=== PATIENT | female | born 2000 | race Caucasian/White ===

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

== ENCOUNTER → 2020-02-13 15:26 | Outpatient (BNVA) | payer BC, SELFPAY | PROVIDERS: Family Provider Family Medicine; PCP Family Medicine; Visit Provider Obstetrics & Gynecology | DX: Z30.017 Encounter for initial prescription of implantable subdermal contraceptive (principal); Z30.9 Encounter for contraceptive management, unspecified | CPT/HCPCS: 81025 ==

== ENCOUNTER 2021-07-15 10:47 | Emergency (ER) | payer BC, SELFPAY ==
[2021-07-15 11:19] VITALS: BP 110/67; PULSE 58; RESP 18; TEMP 36.7; O2SAT 97; BMI 27.4
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
[2021-07-15] MEDS: CELEcoxib 200 mg Capsule 400 MG PO (12:18)
[2021-07-15 12:19] VITALS: RESP 18; TEMP 36.7; O2SAT 97
== END 2021-07-15 12:19 | disposition home or self-care (01) ==
PROVIDERS: Emergency Provider Nurse Practitioner Family; PCP Family Medicine
DX: S99.912A Unspecified injury of left ankle, initial encounter (principal); Y93.52 Activity, horseback riding
CPT/HCPCS: 73630; 99283

== ENCOUNTER → 2022-10-03 14:55 | Outpatient (BNVA) | payer BC, SELFPAY | PROVIDERS: PCP Family Medicine; Visit Provider Obstetrics & Gynecology | DX: N76.0 Acute vaginitis (principal); B96.89 Other specified bacterial agents as the cause of diseases classified elsewhere | CPT/HCPCS: 87491; 87591; 87661 ==

== ENCOUNTER → 2024-08-26 09:51 | Outpatient (BNVA) | payer BC, SELFPAY | PROVIDERS: PCP Family Medicine; Visit Provider Nurse Practitioner Women's Health | DX: N91.2 Amenorrhea, unspecified (principal); N92.6 Irregular menstruation, unspecified | CPT/HCPCS: 81025 ==

== ENCOUNTER → 2024-08-30 12:28 | Outpatient (BNVA) | payer BC, SELFPAY | PROVIDERS: PCP Family Medicine; Visit Provider Nurse Practitioner Women's Health | DX: Z34.90 Encounter for supervision of normal pregnancy, unspecified, unspecified trimester (principal) | CPT/HCPCS: 76801 ==

== ENCOUNTER → 2024-09-22 09:58 | Outpatient (BNVA) | payer BC, SELFPAY | PROVIDERS: PCP Family Medicine; Visit Provider Nurse Practitioner Women's Health | DX: Z34.90 Encounter for supervision of normal pregnancy, unspecified, unspecified trimester (principal); Z34.00 Encounter for supervision of normal first pregnancy, unspecified trimester | CPT/HCPCS: 80307; 84315; 85025; 86592; 86762; 86803; 86850; 86900; 87086; 87340; 87806 ==

== ENCOUNTER → 2024-09-30 10:30 | Outpatient (BNVA) | payer BC, SELFPAY | PROVIDERS: PCP Family Medicine; Visit Provider Obstetrics & Gynecology | DX: Z34.01 Encounter for supervision of normal first pregnancy, first trimester (principal) | CPT/HCPCS: 84315; 87491; 87591; 87624; 87661 ==

== ENCOUNTER → 2024-10-20 14:06 | Outpatient (BNVA) | payer BC, SELFPAY | PROVIDERS: PCP Family Medicine; Visit Provider Nurse Practitioner Women's Health | DX: Z34.01 Encounter for supervision of normal first pregnancy, first trimester (principal) | CPT/HCPCS: 84315 ==

== ENCOUNTER → 2024-12-02 14:55 | Outpatient (BNVA) | payer BC, SELFPAY | PROVIDERS: PCP Family Medicine; Visit Provider Obstetrics & Gynecology | DX: Z34.90 Encounter for supervision of normal pregnancy, unspecified, unspecified trimester (principal) | CPT/HCPCS: 84315 ==

== ENCOUNTER → 2024-12-19 08:00 | Outpatient (BNVA) | payer BC, SELFPAY | PROVIDERS: PCP Family Medicine; Visit Provider Nurse Practitioner Women's Health | DX: O99.891 Other specified diseases and conditions complicating pregnancy (principal); R82.71 Bacteriuria | CPT/HCPCS: 84315; 87086 ==

== ENCOUNTER → 2024-12-27 11:14 | Outpatient (BNVA) | payer BC, SELFPAY | PROVIDERS: PCP Family Medicine; Visit Provider Nurse Practitioner Women's Health | DX: O26.899 Other specified pregnancy related conditions, unspecified trimester (principal); R30.0 Dysuria | CPT/HCPCS: 81000; 87086 ==

== ENCOUNTER 2025-01-08 11:06 | Outpatient (CLI) | payer BC, SELFPAY ==
[2025-01-08 11:19] VITALS: BP 126/69; PULSE 103
[2025-01-08 11:20] VITALS: BMI 35.6
[2025-01-08 11:33] LABS: Bilirubin Urine Negative (Negative); Blood Urine Negative (Negative); Glucose Urine UA Trace (Normal); Ketones Urine Trace (Negative); Leukocyte Esterase Urine Negative (Negative); Nitrate Urine Negative (Negative); Protein Urine Negative (Negative); Specific Gravity, Urine 1.014 (1.005-1.030); Urine Appearance Clear (CLEAR); Urine Color Yellow (Yellow); pH Urine 6.5 (5-7)
[2025-01-08 11:38] LABS: Add Urine Microscopic? YES; Bacteria Urine None Seen /hpf; Hyaline Casts Urine 0-4 /lpf; RBC Urine 0-2 /hpf (0-2); Squamous Epithelial Cell Urine 0-5 /hpf (0-5); WBC Urine 0-5 /hpf (0-5)
[2025-01-08 11:39] VITALS: BP 112/58; PULSE 86
== END 2025-01-08 12:20 | disposition home or self-care (01) ==
LOC: OPOB 11:08 → OBGYN 11:10
PROVIDERS: PCP Family Medicine; Visit Provider Obstetrics & Gynecology
DX: O26.859 Spotting complicating pregnancy, unspecified trimester (principal); Z3A.00 Weeks of gestation of pregnancy not specified
CPT/HCPCS: 59025; 81001; 99211

== ENCOUNTER → 2025-01-16 08:13 | Outpatient (BNVA) | payer BC, MEDICAID, SELFPAY | PROVIDERS: PCP Family Medicine; Visit Provider Obstetrics & Gynecology | DX: Z34.90 Encounter for supervision of normal pregnancy, unspecified, unspecified trimester (principal); Z34.01 Encounter for supervision of normal first pregnancy, first trimester | CPT/HCPCS: 82950; 84315; 85025 ==

== ENCOUNTER → 2025-01-30 10:55 | Outpatient (BNVA) | payer BC, SELFPAY | PROVIDERS: PCP Family Medicine; Visit Provider Nurse Practitioner Women's Health | DX: Z34.00 Encounter for supervision of normal first pregnancy, unspecified trimester (principal) | CPT/HCPCS: 84315 ==

== ENCOUNTER → 2025-02-14 08:15 | Outpatient (BNVA) | payer BC, SELFPAY | PROVIDERS: PCP Family Medicine; Visit Provider Nurse Practitioner Women's Health | DX: Z34.90 Encounter for supervision of normal pregnancy, unspecified, unspecified trimester (principal) | CPT/HCPCS: 84315 ==

== ENCOUNTER → 2025-02-28 13:01 | Outpatient (BNVA) | payer BC, MEDICAID, SELFPAY | PROVIDERS: PCP Family Medicine; Visit Provider Nurse Practitioner Women's Health | DX: Z34.03 Encounter for supervision of normal first pregnancy, third trimester (principal) | CPT/HCPCS: 76816; 84315 ==

== ENCOUNTER 2025-03-09 10:58 | Outpatient (CLI) | payer BC, MEDICAID, SELFPAY ==
[2025-03-09 11:00] VITALS: RESP 17; BMI 38.2
[2025-03-09 11:08] VITALS: BP 123/73; PULSE 90
[2025-03-09 11:23] VITALS: BP 124/69; PULSE 104
[2025-03-09 12:02] VITALS: BP 124/70; PULSE 84
[2025-03-09 12:32] VITALS: BP 124/62; PULSE 93
[2025-03-09 13:02] VITALS: BP 111/67; PULSE 86
== END 2025-03-09 13:30 | disposition home or self-care (01) ==
LOC: OPOB 10:59 → OBGYN 10:59
PROVIDERS: PCP Family Medicine; Visit Provider Obstetrics & Gynecology
DX: O26.899 Other specified pregnancy related conditions, unspecified trimester (principal); Z3A.00 Weeks of gestation of pregnancy not specified; R42 Dizziness and giddiness; M79.89 Other specified soft tissue disorders
CPT/HCPCS: 59025; 99211

== ENCOUNTER 2025-03-14 09:02 | Outpatient (CLI) | payer BC, MEDICAID, SELFPAY ==
[2025-03-14] VITALS (10 sets, daily range): BP systolic 110–133; BP diastolic 61–78; PULSE 88–108; RESP 16–17; TEMP 36.6–36.7; BMI 37.3
== END 2025-03-14 11:55 | disposition home or self-care (01) ==
LOC: OPOB 09:03 → OBGYN 09:04
PROVIDERS: PCP Family Medicine; Visit Provider Obstetrics & Gynecology
DX: O13.9 Gestational [pregnancy-induced] hypertension without significant proteinuria, unspecified trimester (principal); Z3A.00 Weeks of gestation of pregnancy not specified; R25.2 Cramp and spasm
CPT/HCPCS: 59025; 84315; 87081; 99211

== ENCOUNTER → 2025-03-20 08:05 | Outpatient (BNVA) | payer BC, SELFPAY | PROVIDERS: PCP Family Medicine; Visit Provider Obstetrics & Gynecology | DX: Z34.90 Encounter for supervision of normal pregnancy, unspecified, unspecified trimester (principal) | CPT/HCPCS: 84315 ==

== ENCOUNTER 2025-03-30 22:35 | Outpatient (CLI) | payer BC, MEDICAID, SELFPAY ==
[2025-03-30 22:40] VITALS: BMI 38.1
[2025-03-30 22:49] VITALS: BP 134/86; PULSE 82
[2025-03-30 23:03] VITALS: BP 135/89; PULSE 81
[2025-03-30 23:19] VITALS: BP 121/72; PULSE 76
[2025-03-30 23:54] LABS: Hematocrit 35.2 % (36-47); Hemoglobin 11.50 g/dL (11.27-16.99); Mean Corpuscular HGB Conc 32.7 g/dL (30-55); Mean Corpuscular Hemoglobin 26.3 pg (27-33); Mean Corpuscular Volume 80.4 fl (85-98); Nucleated Red Blood Cells % 0 %; Platelet Count 239 10^3/cmm (157-399); Red Blood Count 4.38 10^6/uL (3.85-5.65); White Blood Count 14.06 10^3/uL (3.29-11.43)
[2025-03-31 00:16] LABS: Glucose Urine UA Negative (Normal); Nitrate Urine Negative (Negative); Specific Gravity, Urine 1.009 (1.005-1.030)
[2025-03-31 00:21] LABS: Add Urine Microscopic? YES
[2025-03-31 00:54] LABS: UPRO/UCREAT Ratio 0.26 mg/mg CR
== END 2025-03-31 01:08 | disposition home or self-care (01) ==
LOC: OPOB 22:35 → OBGYN 22:37
PROVIDERS: PCP Family Medicine; Visit Provider Obstetrics & Gynecology
DX: O36.8190 Decreased fetal movements, unspecified trimester, not applicable or unspecified (principal); Z3A.00 Weeks of gestation of pregnancy not specified; R51.9 Headache, unspecified
CPT/HCPCS: 59025; 81001; 82570; 83615; 84156; 85025; 99211

== ENCOUNTER → 2025-04-03 08:02 | Outpatient (BNVA) | payer BC, MEDICAID, SELFPAY | PROVIDERS: PCP Family Medicine; Visit Provider Obstetrics & Gynecology | DX: O09.893 Supervision of other high risk pregnancies, third trimester (principal); Z14.1 Cystic fibrosis carrier | CPT/HCPCS: 84315 ==

== ENCOUNTER → 2025-04-10 12:37 | Outpatient (BNVA) | payer BC, MEDICAID, SELFPAY | PROVIDERS: PCP Family Medicine; Visit Provider Obstetrics & Gynecology | DX: O26.893 Other specified pregnancy related conditions, third trimester (principal); Z3A.40 40 weeks gestation of pregnancy | CPT/HCPCS: 76819 ==

== ENCOUNTER 2025-04-10 18:00 | Inpatient (IN) | payer BC, MEDICAID, SELFPAY ==
[2025-04-10] VITALS (7 sets, daily range): BP systolic 118–136; BP diastolic 66–87; PULSE 80–100; TEMP 37.2; BMI 41.5
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
--- NOTE | 2025-04-10 19:11 | ANES.PREANE2 ---
Pre-Anesthetic Assessment Height/Weight: Height 1.65 m Epidural Familial anesthetic complications: None Was Beta Abigail taken within 24 hours: N/A Was Clonidine taken within 24 hours: N/A Last intake: 1800 Social No alcohol and No tobacco Exam alert, oriented x 3, clear to auscultation bilaterally and regular rate & rhythm Airway Submandibular: within normal limits Cervical ROM: within normal limits Mallampati: Class III Dentition: full History/ROS No significant history except as noted and No significant complaints Pulmonary None reported CV/HEM None reported None reported Hepatic None reported GI None reported Metabolic None reported Musc/skel None reported Neuropsych None reported Anesthetic Plan ASA status: 2 Anesthesia: Anesthesia Evaluation, General and Regional (specify below) (Epidural) Risk of > 500 ml blood loss (7ml/kg in children): Yes, adequate IV access and fluids planned Medications/Allergies Home Medications ?Medication ?Instructions ?Recorded ?Confirmed ?Last Taken ?Type aljfnbmw-tbo-Ee-FA 1 mg 1 tab PO 1XD 03/30/25 04/10/25 Unknown History tablet Allergies Allergy/AdvReac Type Severity Reaction Status Date / Time Penicillins Allergy Unknown Verified 04/10/25 08:50 [facility] Anesthesia Medical History (Updated 04/10/25 @ 13:53 by Aron Gonzalez MD) History of penicillin allergy No pertinent past medical history Neghx:HTN,DM,Thyroid,DVT/PE PCP: None Surgical History H/O skin graft (~2019) hand and leg-- [facility] Family History Grandmother Hypertension Maternal great grandmother Heart disease Maternal great grandmother Cancer Maternal great grandmother - Cervical cancer Family/Other Cancer Maternal aunt - Colon cancer Family history of thyroid problem Maternal aunt Grandfather Family history of thyroid problem Maternal grandfather Hyperlipidemia maternal Denies family history of Colon cancer Ovarian cancer Diabetes Clotting disorder Breast cancer Anesthesia complication Bleeding disorder Uterine cancer Stroke Social History Smoking and tobacco/nicotine status: former use of tobacco/nicotine Alcohol intake: never Substance/Drug Use: never
[2025-04-10 20:22] LABS: Hematocrit 32.8 % (36-47); Hemoglobin 10.40 g/dL (11.27-16.99); Mean Corpuscular HGB Conc 31.7 g/dL (30-55); Mean Corpuscular Hemoglobin 25.4 pg (27-33); Mean Corpuscular Volume 80.2 fl (85-98); Nucleated Red Blood Cells % 0 %; Platelet Count 208 10^3/cmm (157-399); Red Blood Count 4.09 10^6/uL (3.85-5.65); White Blood Count 15.29 10^3/uL (3.29-11.43)
[2025-04-10] MEDS: ampicillin 2,000 MG in sodium chloride 0.9% (plus) 50 ML 100 MG IV (20:45)
[2025-04-10 20:58] LABS: Slide Review Slide Review Perform
--- NOTE | 2025-04-10 22:13 | P.HP_ITS ---
Providers/Chief Complaint 2 Admitting Physician: Aron Gonzalez MD Primary Care Provider: Chan Marquez MD Chief Complaint: Induction History of Present Illness The patient is a 24-year-old female presenting with the need for induction of labor due to 40+ weeks. Group B Streptococcus carrier. Historically, she has tolerated amoxicillin without adverse reactions, though she reported an assumed rash as a when exposed to penicillin but has no further details. She has not experienced significant labor symptoms such as contractions, vaginal bleeding, or amniotic fluid leakage. Menstrual-like cramping has been reported, lacking any notable progression into active labor. An ultrasound today confirmed favorable conditions for labor induction, some progress of dilation from 0 to 2cm. Today BPP and ELIE normal. Review of Systems 2 Const: Denies: fever(s) Eyes: Denies: floaters Card: Reports: swelling of feet/ankles GI: Denies: abdominal pain, nausea, vomiting, heartburn or constipation : Reports: pelvic pain (occ contractions ); Denies: dysuria, vaginal bleeding, vaginal discharge or other (contractions/leaking fluid ) Musc: Denies: back pain or muscle cramps Neuro: Denies: headache(s) Psych: Denies: anxiety or depression Medications/Allergies Home Medications ?Medication ?Instructions ?Recorded ?Confirmed ?Last Taken ?Type ywbolffy-ofy-Fa-FA 1 mg 1 tab PO 1XD 03/30/25 04/10/25 Unknown History tablet Allergies Allergy/AdvReac Type Severity Reaction Status Date / Time Penicillins Allergy Unknown Verified 04/10/25 21:03 PFSH Acute 2 PFSH: Medical History (Updated 04/10/25 @ 13:53 by Aron Gonzalez MD) History of penicillin allergy No pertinent past medical history Neghx:HTN,DM,Thyroid,DVT/PE PCP: None Surgical History H/O skin graft (~2019) hand and leg-- [facility] Family History Grandmother Hypertension Maternal great grandmother Heart disease Maternal great grandmother Cancer Maternal great grandmother - Cervical cancer Family/Other Cancer Maternal aunt - Colon cancer Family history of thyroid problem Maternal aunt Grandfather Family history of thyroid problem Maternal grandfather Hyperlipidemia maternal Denies family history of Colon cancer Ovarian cancer Diabetes Clotting disorder Breast cancer Anesthesia complication Bleeding disorder Uterine cancer Stroke Social History Smoking and tobacco/nicotine status: former use of tobacco/nicotine Alcohol intake: never Substance/Drug Use: never Female Reproductive History: : 1 Vitals/I&O/Wt Last Vital Signs Temp 98.9 F 04/10/25 21:21 Pulse 92 04/10/25 21:03 BP 133/79 04/10/25 21:03 O2 Del Method Room Air 04/10/25 19:15 Weight last 48 hrs Weight 234 lb 8 oz Physical Exam 2 : MANUAL OB EXAM: dilated 4 cm, effaced, station -2 and other (IM) UTERUS PALPATION: No Uterus tender Extremity: GENERAL: No calf tenderness Data 04/10/25 19:30 A&P Assessment and plan 1. 40 weeks gestation of : 2. History of penicillin allergy: 3. GBS carrier: Plan: 1. 40 weeks gestation of : Assessment & Plan: Induction to address labor progression efficiently while managing GBS risk. Will begin with 25mcg vaginal Miso. Amniotomy when indicated. 2. GBS carrier: Assessment & Plan: The need for antibiotic prophylaxis during labor was discussed due to GBS carrier status. Alternatives to penicillin, such as cefazolin, should be considered should the need arise during labor. Amoxicillin tolerance was noted, offering some flexibility in antibiotic choice. 3. History of penicillin allergy: Assessment & Plan: The need for antibiotic prophylaxis during labor was discussed due to GBS carrier status. Alternatives to penicillin, such as cefazolin, should be considered should the need arise during labor. Amoxicillin tolerance was noted, offering some flexibility in antibiotic choice. 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 - Delay epidural until contractions are more advanced to avoid slowing labor. - Inform healthcare providers immediately if any new symptoms such as contractions, bleeding, or leaking fluid occur. - Discuss any concerns with antibiotic alternatives due to GBS carrier status, especially with a history of penicillin rash. Admit to L&D for induction monitoring Notify anesthesia if epidural requested Anticipate vag delivery NPO except ice chips when in active labor IV ? D5LR at 125 cc/hr CBC, T&S, RPR See Orders PDMP PDMP Reviewed: Not Reviewed Attestations 2 Medical Necessity Statement*: In summary, in-patient admission and treatment is medically necessary to effectively address the patient?s health condition and improve their overall well-being. Coding Level of Care Code Acute Code for Chg Fwd Diagnoses 40 weeks gestation of Z3A.40 History of penicillin allergy Z88.0 GBS carrier Z22.330
[2025-04-11] VITALS (88 sets, daily range): BP systolic 106–149; BP diastolic 55–95; PULSE 60–171; RESP 15–17; TEMP 36.6–36.8; O2SAT 97–100
[2025-04-11] MEDS: ampicillin 1,000 MG in sodium chloride 0.9% (plus) 50 ML 100 MG IV ×3 (00:48→09:26)
[2025-04-11] MEDS: ROPivacaine syringe 100 MG/50 ML SYRINGE 10 MG EPIDURAL ×2 (04:10→08:39)
[2025-04-11] MEDS: oxytocin 30 UNIT/500 ML BAG IV (06:15)
--- NOTE | 2025-04-11 09:24 | P.ANES_ITS ---
Anesthesia Procedures Procedure/Date: 04/11/25 Epidural: Time Out Performed: Yes Consents Signed: Procedure Consent Consent: requested by attending/covering physician and from patient Lumbar Level: L3-L4 Epidural position: sitting Epidural procedure: sterile prep of area, 1% lidocaine to numb the area, 18 g needle, negative for paresthesia p assed, neg for paresthesia, test dose given, 1.5% xylocaine 1:200k epi, 0.2% Ropivacaine bolus ml, placed PCEA, no systemic response, sterile dressing applied, L.U.D. no apparent complications and 0.2% Ropiavacaine @ mls/hr Additional Comments: Loss of resistance received at 6 cm, catheter left at 11 cm at the skin. Epidural placed around 0345 Was called at 09 100 for increased pain. 100 mcg of fentanyl and 5 cc of 1% lidocaine injected in the epidural catheter
--- OUTSIDE RECORDS SUMMARY | 2025-04-11 12:23 | XMS_ITS | Patient Health Record ---
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) 04/22/20 17 Active confirmed [id number]- Problem Palpitations (93836251) Palpitations (785.1) 08/17/20 17 Problem resolved confirmed [id number] 11- Problem Rash (397750603) Rash (782.1) 11/26/19 18 Problem resolved confirmed [id number]- Problem Tooth abscess (338833004) Tooth abscess (522.5) 09/05/20 09 Problem resolved confirmed [id number]- Problem Allergic rhinitis caused by pollen (58592031) Allergies (477.0) 11/26/19 18 Problem resolved confirmed [id number]- Problem Fever (256346459) Fever (780.6) 05/27/20 07 Problem resolved confirmed [id number]- Problem Mass (671874459) Mass (782.2) 10/16/19 18 Problem resolved confirmed [id number]- Problem History and physical examination, sports participation (022944939) Sports physical (V70.3) 07/14/20 16 Problem resolved confirmed [id number]- Problem Contraception care management (409036769) Contraception advice, other method (V25.09) 10/16/19 18 Problem resolved confirmed [id number]- Problem Acute sinusitis (01649308) Acute sinusitis (461.8) 09/05/20 09 Problem resolved confirmed [id number]- Plan Of Treatment No Information Medical (General) History Surgical History Surgery Date(Month/Year) NONE
--- OUTSIDE RECORDS SUMMARY | 2025-04-11 12:23 | XMS_ITS | Clinical Summary ---
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
--- OUTSIDE RECORDS SUMMARY | 2025-04-11 12:23 | XMS_ITS | Clinical Summary ---
Author Organization [facility] Address [address] [place] [address] Phone Care Team Providers Care Locks Inspector Name Role Phone Non-Staff, Physician Primary Care [...] Tdap) 12/29/2028 Medical Devices Implanted Type Area Belt Line Feeder Device Identifier Shelf Expiration Date Model / Serial / Lot Sealant Fibrin Artiss 4ml [facility] [id number] - [id number] Implanted:Qty: 1 on 12/30/2018 by Karan Kim MD at [facility] Sealant Right: Hand [employer] 04/13/2020 [id number] / / [id number] Insurance BS Advance Directives For more information, please contact: [phone] * Full Code (Latest Code Status on File) Date Activated Date Inactivated Comments 12/29/2018 5:54 PM 01/04/2019 12:36 PM Care Teams Locks Inspector Relationship Specialty Start Date End Date Non-Staff, Physician NO ADDRESS ON FILE PCP - General 12/29/18
--- NOTE | 2025-04-11 12:43 | PM.DELIVERY ---
Delivery Note: Date of delivery: April 11, 2025 Pre-delivery diagnoses: Post 40wks Induction GBS+ Post-delivery diagnoses: Same Procedure: Delivering Physician: Lisa Findings: 300ml Delivery: Patient is a 24year-old , admitted at +40 weeks gestation for IOL. GBS+. Cervix was 4cm dilated, 80% effaced, and head at -3 station upon admission. GBS prophylaxis given. Labor progressed well, with cervical dilation reaching 10 cm and the head descending to +2 station. Patient received an epidural early in labor. The rest of the body followed without difficulty. The baby is a healthy male, weighing 8 lbs 13 oz, with scores of 8 at 1 minute and 8 at 5 minutes. The placenta was delivered spontaneously and intact after one minute of delayed cord clamping. Estimated blood loss was 300 mL. The patient tolerated the procedure well and is currently stable in the recovery room. Two 2nd degree lacerations sutured with 3-0 vicryl with good hemostasis. Pelvic exam clots removed manually and minimal bleeding noted. Skin to skin. Post-Delivery Status: Stable condition History History History 1 Term 0 0 Miscarriages/Ectopic 0 Living Children 0 A&P Assessment and plan 1. Normal vaginal delivery: 2. Encounter for induction of labor: 3. Postmaturity , 40-42 weeks gestation: 4. GBS carrier: Plan: Ambulate with assistance initially then as tolerated. Regular diet as tolerated. Ibuprofen 600 mg p.o. every 6 hours as needed, acetaminophen 650 mg p.o. every 4-6 hours as needed. Hydrocodone/acetaminophen 5/325 mg p.o. every 4 hours as needed for severe pain. Ice packs to perineum for the first 24 hours then sitz bath 2-3 times daily. Topical anesthetic spray as needed if needed. Assessment of fundus firmness and lochia every 8 hours or per unit protocol. Encourage frequent voiding. Stool softener docusate sodium 100 mg p.o. daily. Discontinue IV fluids if stable and tolerating oral intake. PDMP PDMP Reviewed: Not Reviewed Coding Level of Care Code Acute Code for Chg Fwd Diagnoses GBS carrier Z22.330 Normal vaginal delivery O80 Encounter for induction of labor Z34.90 Postmaturity , 40-42 weeks gestation O48.0
[2025-04-11] MEDS: benzocaine-menthol 78 gm Canister 1 SPRAY TOPICAL (15:34)
[2025-04-12 01:45] LABS: Hematocrit 23.5 % (36-47); Hemoglobin 7.50 g/dL (11.27-16.99); Mean Corpuscular HGB Conc 31.9 g/dL (30-55); Mean Corpuscular Hemoglobin 25.8 pg (27-33); Mean Corpuscular Volume 80.8 fl (85-98); Platelet Count 184 10^3/cmm (157-399); Red Blood Count 2.91 10^6/uL (3.85-5.65); White Blood Count 14.65 10^3/uL (3.29-11.43)
[2025-04-12 05:30] VITALS: BP 132/76; PULSE 106; RESP 16
[2025-04-12] MEDS: PRENATAL VIT NO.130/IRON/FOLIC 1 EACH TABLET PO (09:19)
[2025-04-12 09:20] VITALS: BP 130/88; PULSE 102; RESP 16; TEMP 36.7; O2SAT 97
--- NOTE | 2025-04-12 12:00 | ANE.PACU2 ---
Inpatient post-anesthesia follow up: Airway intact: Yes Vital signs: Temperature 97.9 F Pulse Rate 100 Respiratory Rate 16 Blood Pressure 126/82 Pulse Oximetry 99 Oxygen Delivery Me thod Room Air Oxygen Flow Rate Fraction of Inspir ed Oxygen Hydration adequate: Yes Nausea and vomiting: No Pain level: 1 Mental status: Baseline Epidural Start/End: Epidural Start Date: 04/11/25 Epidural Start Time: 03:45 Epidural End Date: 04/11/25 Epidural End Time: 17:02
[2025-04-12 14:09] VITALS: BP 126/82; PULSE 100; RESP 16; TEMP 36.6; O2SAT 99
--- NOTE | 2025-04-20 12:57 | PM.OBGYDC ---
Discharge Providers [employer] REMOVAL SUPERVISOR Date of Admission: 04/11/25 07:45 Date of Discharge: 04/12/25 Attending Provider at Admission: Aron Gonzalez MD Attending Provider at Discharge: Aron Gonzalez MD Primary Care Provider: Chan Marquez MD Diagnoses at Discharge Discharge Diagnosis 1. Normal vaginal delivery: 2. GBS carrier: 3. Encounter for induction of labor: 4. Postmaturity , 40-42 weeks gestation: Reason for Visit Reason for Visit: Induction Hospital Course Hospital Course Vaginal delivery 24yo G1 without complications after induction for 40+wks. 2nd degree repair without complications. Post recovery without complications. Discharged home with intructions including fup in clinic. Information Peripartum Data: Delivery Method: Vaginal Laceration description: Vaginal - 2nd Degree Episiotomy description: None complications: none Physical Exam Const: COMMON NORMALS: no acute distress HENMT: COMMON NORMALS: normocephalic HEAD & SCALP: normocephalic Eye: COMMON NORMALS: conjunctivae normal CONJUNCTIVA: Yes conjunctivae normal Urinary Catheter Management: Acosta Latex Free: Cath Placed During This Visit: yes, but has since been removed by the nurse Reason for Continuing Indwelling Catheter: Decision to DC Catheter Urinary Catheter Date of Insertion: 04/11/25 Urinary Catheter Time of Insertion: 05:45 Date Urinary Catheter Removed: 04/11/25 Time Urinary Catheter Discontinued: 11:10 History History History 1 Term 0 0 Miscarriages/Ectopic 0 Living Children 0 Discharge Data Studies Completed and Pending Laboratory Results WBC 14.65 10^3/uL (3.29-11.43) H 04/12/25 01:35 RBC 2.91 10^6/uL (3.85-5.65) L 04/12/25 01:35 Hgb 7.50 g/dL (11.27-16.99) L 04/12/25 01:35 Hct 23.5 % (36-47) L 04/12/25 01:35 MCV 80.8 fl (85-98) L 04/12/25 01:35 MCH 25.8 pg (27-33) L 04/12/25 01:35 MCHC 31.9 g/dL (30-55) 04/12/25 01:35 RDW 14.1 % (12.1-15.1) 04/12/25 01:35 Plt Count 184 10^3/cmm (157-399) 04/12/25 01:35 MPV 12.8 fL (7.4-10.4) H 04/12/25 01:35 Neut % (Auto) 78.1 % 04/10/25 19:30 Lymph % (Auto) 13.7 % 04/10/25 19:30 Rincon % (Auto) 6.7 % 04/10/25 19:30 Eos % (Auto) 0.3 % 04/10/25 19:30 Baso % (Auto) 0.2 % 04/10/25 19:30 Neut # (Auto) 11.95 10^3/uL (1.8-7.7) H 04/10/25 19:30 Lymph # (Auto) 2.1 10^3/uL (0.8-4.8) 04/10/25 19:30 Rincon # (Auto) 1.0 10^3/uL (0.2-0.9) H 04/10/25 19:30 Eos # (Auto) 0.1 10^3/uL (0.0-0.8) 04/10/25 19:30 Baso # (Auto) 0.0 10^3/uL (0.0-0.1) 04/10/25 19:30 Nucleated RBC % (auto) 0 % 04/10/25 19: Nucleated RBCs # 0.0 /100WBC 04/10/25 19:30 Blood Type AB Positive 04/10/25 19:30 Rho(D) Type Rh positive 04/10/25 19:30 Antibody Screen Negative 04/10/25 19:30 Vitals Last Vital Signs Temp 97.9 F 04/12/25 14:09 Pulse 100 04/12/25 14:09 Resp 16 04/12/25 14:09 BP 126/82 04/12/25 14:09 Pulse Ox 99 04/12/25 14:09 O2 Del Method Room Air 04/12/25 09:20 Results Labs OB ([facility]): Obstetrics US 02/28/25 Obstetrics US/Biophysical Profile 04/10/25 Blood Type AB Positive 04/10/25 Antibody Screen Negative 04/10/25 Hct, (36-47) 23.5 % L 04/12/25 Hgb, (11.27-16.99) 7.50 g/dL L 04/12/25 Rho(D) Type Rh positive 04/10/25 Plt Count, (157-399) 184 10^3/cmm 04/12/25 Hep Bs Antigen, (Nonreactive) Non-reactive 09/22/24 Hepatitis C Antibody, (Nonreactive) Non-reactive 09/22/24 Rubella IgG Antibody, (0.0-10.0) 184.1 IU/mL H 09/22/24 RPR, (Nonreactive) Nonreactive 09/22/24 HIV 1&2 Ab & HIV 1 Ag, (Non-Reactiv) Non-reactive 09/22/24 Glucose 1 Hr 50 gm, (85-140) 125 mg/dL 01/16/25 HCG, Qual, (Negative) Positive H 08/26/24 Urine Opiates Screen, (Negative) Negative ng/mL 09/22/24 Ur Barbiturates Screen, (Negative) Negative ng/mL 09/22/24 Ur Phencyclidine Scrn, (Negative) Negative ng/mL 09/22/24 Ur Amphetamines Screen, (Negative) Negative ng/mL 09/22/24 U Benzodiazepines Scrn, (Negative) Negative ng/mL 09/22/24 Urine Cocaine Screen, (Negative) Negative ng/mL 09/22/24 U Marijuana (THC) Screen, (Negative) Negative ng/mL 09/22/24 Micro Urine Specimen 12/27/24 Pap Smear Interpret See note 09/30/24 Discharge Plan Discharge Patient Disposition: Home Condition: Stable Prescriptions: New ferrous sulfate 324 mg (65 mg iron) tablet,delayed release (DR/EC) 324 mg PO DAILY Qty: 90 3RF Continued rqeafkwr-vlj-Eg-FA 1 mg Tablet 1 tab PO 1XD Discharge Order = DC NOW: Discharge Order (Routine); Ordered 04/12/25 Ordered By: Alden Holliday Referrals: Aron Gonzalez MD [Physician, [employer] REMOVAL SUPERVISOR] - 05/22/25 10:45 am Referral Note: Follow up appointment. Discharge Diet: Usual diet Discharge Activity: Increase activity as tolerated Patient Instructions: Depression (DC), Perineal Care (DC), Opioid Safety (DC), Preeclampsia and Eclampsia After Delivery (GEN), Hemorrhage (DC), OB Discharge Report, OB Food/Drug Interaction Guide, Opioid Safety, OB Home Care, OB Vaginal Deliveries - [facility], Patient Portal & [employer] Instructions, Abnormal Bleeding Activity Restrictions/Additional Instructions: Pelvic rest 6 weeks Discharge Attestations [employer]BE[employer]OS REMOVAL SUPERVISOR Time Spent in Discharge Care*: less than 30 min Coding Level of Care Code Acute Code for Chg Fwd Diagnoses Normal vaginal delivery O80 GBS carrier Z22.330 Encounter for induction of labor Z34.90 Postmaturity , 40-42 weeks gestation O48.0
== END 2025-04-12 13:50 | disposition home or self-care (01) | DRG 806 ==
PROVIDERS: Admitting Provider Obstetrics & Gynecology; PCP Family Medicine; Visit Provider Obstetrics & Gynecology
DX: O48.0 Post-term pregnancy (principal); O99.834 Other infection carrier state complicating childbirth; Z37.0 Single live birth; Z3A.40 40 weeks gestation of pregnancy; O99.824 Streptococcus B carrier state complicating childbirth; O70.1 Second degree perineal laceration during delivery; Z14.8 Genetic carrier of other disease; Z88.0 Allergy status to penicillin; Z87.891 Personal history of nicotine dependence
CPT/HCPCS: 12345; 36415; 51702; 59025; 59409; 84315; 85025; 85027; 86850; 86900; 96374; G0378; G0379; J0290; J2590; J2795; J3010; J7030; J7121; J9999